=== PATIENT | female | born 1975 | race Two or more races ===

== ENCOUNTER 2019-04-22 20:34 | Emergency (ER) | payer MEDICAID ==
[~2019-04-22] VITALS: Ht 160 cm; Wt 77.6 kg
[2019-04-22 21:16] VITALS: BP 124/68
== END 2019-04-22 21:55 | disposition home or self-care (01) ==
LOC: ER 20:39
DX: B35.3 Tinea pedis (principal); Z90.49 Acquired absence of other specified parts of digestive tract

== ENCOUNTER 2021-07-16 21:01 | Emergency (ER) | payer MEDICAID ==
[~2021-07-16] VITALS: Ht 162.6 cm; Wt 83.9 kg
[2021-07-16 21:02] VITALS: BP 138/79
== END 2021-07-17 04:34 | disposition left against medical advice (07) ==
LOC: ER 21:01
DX: M54.9 Dorsalgia, unspecified (principal); Z53.21 Procedure and treatment not carried out due to patient leaving prior to being seen by health care provider